=== PATIENT | female | born 1975 | race African-American/Black ===

== ENCOUNTER 2022-04-21 11:10 | Emergency (ER) | payer SELFPAY ==
[2022-04-21] MEDS ORDERED: GI Cocktail Oral Solution 30 ML PO ONE (11:37)
[2022-04-21 12:23] LABS: ANION GAP 9.9 mmol/L (5-15)
[2022-04-21] MEDS ORDERED: Pantoprazole 40 MG Tab.CR PO ONE (12:56)
[2022-04-21] MEDS ORDERED: Ferrous Sulfate 325 MG Tab PO ONE (13:03)
== END 2022-04-21 13:23 | disposition home or self-care (01) ==
LOC: VM.ED 11:10
DX: D50.9 Iron deficiency anemia, unspecified (principal); I10 Essential (primary) hypertension
CPT/HCPCS: 36415; 80053; 82150; 82607; 82728; 82746; 83540; 83550; 83690; 84484; 85025; 93005; 93010; 99284; 99285; A9270-GY